=== PATIENT | male | born 1955 | race Caucasian/White ===

== ENCOUNTER 2022-11-21 22:41 | Emergency (ER) | payer OTHER, MEDICARE, SELFPAY ==
--- NOTE | ~2022-11-21 | CT_ITS ---
CT Scan of the Chest without Contrast: Clinical Indication: Swelling/deformity at the left sternoclavicular joint region Technique: Contiguous sections were acquired throughout the chest without intravenous contrast. Dose reduction technique was used on this scan by utilizing automated exposure control and iterative recon struction technique. The dose-length product (DLP) was 939.03 mGy-cm. Findings: There is an intra-articular fracture of the left clavicular head, probably best delineated on sagittal images 88-96. The small inferior left clavicular head fracture fragment remains normally aligned at the left sternoclavicular joint. The bulk of the left clavicular head and remainder of the left clavicle is displaced superiorly, with superior dislocation from the sternoclavicular joint. Th ere is surrounding soft tissue swelling about the fracture or dislocation site with probable small in fraclavicular hematoma. There is no evidence of any significant mediastinal, hilar or axillary lymphadenopathy. Coronary jean ry calcifications are present. There is no evidence of pleural or pericardial effusion. 5 mm right middle lobe pulmonary nodule present (axial image 65). There are scattered somewhat streak y airspace opacities bilaterally, with minimal areas of groundglass opacity. Images through the upper abdomen reveal calcified gallstones. Impression: Acute fracture-dislocation of the left clavicular head and left sternoclavicular joint, as detailed a tarik. Mild surrounding soft tissue swelling with small left infraclavicular hematoma. Diffusely scattered streaky airspace opacities with minimal patchy ground glass opacity. Findings cou ld reflect atelectatic/hypoventilatory change versus other nonspecific interstitial disease. Correlat e clinically. Consider follow-up exam to reassess. 5 mm right middle lobe pulmonary nodule. According to Fleischner Society criteria, no further follow- up required for a low-risk patient. For a high-risk patient, consider 12 month follow-up CT. Reviewed, dictated and finalized at location M. Impression: Acute fracture-dislocation of the left clavicular head and left sternoclavicula r joint, as detailed above. Mild surrounding soft tissue swelling with small left infraclavicular hematoma. Diffusely scattered streaky airspace opacities with minimal patchy ground glass opacity. Findings could reflect atelectatic/hypoventilatory change versus othe r nonspecific interstitial disease. Correlate clinically. Consider follow-up ex am to reassess. 5 mm right middle lobe pulmonary nodule. According to Fleischner Society criter ia, no further follow-up required for a low-risk patient. For a high-risk patie nt, consider 12 month follow-up CT.
--- NOTE | ~2022-11-21 | XR_ITS ---
EXAMINATION: XR clavicle LT INDICATION: Left clavicle pain TECHNIQUE: Two views of the left clavicle are obtained. COMPARISON: None available FINDINGS: Bone alignment is normal. There is no fracture. 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 At least moderate cervical spondylosis is noted. IMPRESSION: 1. No acute osseous abnormality. Reviewed, dictated and finalized at location F.
[2022-11-21 22:45] VITALS: BP 144/93; PULSE 70; RESP 14; TEMP 36.9; O2SAT 97
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
[2022-11-22] MEDS: methocarbamoL 750 MG TABLET 1500 MG PO (00:52)
[2022-11-22] MEDS: ACETAMINOPHEN 500 MG TABLET 1000 MG PO (00:52)
[2022-11-22 01:10] VITALS: BP 140/86; PULSE 81; RESP 19; O2SAT 99
[2022-11-22] MEDS: oxyCODONE HCL (*CRX) 5 MG TAB IR PO (02:27)
[2022-11-22 02:30] VITALS: BP 139/86; BP 140/86; PULSE 88; RESP 14; RESP 19; O2SAT 96; O2SAT 99
== END 2022-11-22 02:30 | disposition home or self-care (01) ==
PROVIDERS: Emergency Provider Emergency Medicine
DX: S42.012A Anterior displaced fracture of sternal end of left clavicle, initial encounter for closed fracture (principal); I10 Essential (primary) hypertension; E11.9 Type 2 diabetes mellitus without complications; R91.1 Solitary pulmonary nodule; V49.40XA Driver injured in collision with unspecified motor vehicles in traffic accident, initial encounter
CPT/HCPCS: 71250; 73000; 99284; A9270